=== PATIENT | male | born 1940 | race Caucasian/White ===

== ENCOUNTER 2017-10-06 09:25 | Day surgery (SDC) | payer MEDICARE ==
[~2017-10-06] VITALS: Ht 175.3 cm; Wt 102.0 kg
[~2017-10-06 09:25] MED LIST: ALBU90OI6; ALBU90OI6 INH; ASPI81CH PO; Aspir 8181 MG PO; Belladonna-Opi1 EACH RC; CEPH500 PO; COMBIVENT RESPIM4 GM; DIGO.25 PO; DILT120 PO; DILT180ER PO; DOCU100; FURO20 PO; HYDRA25; INDO75CR PO; LEVFLO500; LISI20 PO; LISINOPRIL PO; METF500C PO; METO50ER; METO50ER PO; MONT10T PO; Norco 5-325 Ta1 EACH PO; OXYC5 PO; POTA20PAC PO; POTCHL10ER; POTCHL20ER PO; TAZTIA PO; TAZTIA XT360 MG; TERA5 PO; Ventolin5 MG/1 ML INH; WARF10 PO; WARF2.5 PO; WARF5
[2017-10-06] MEDS ORDERED: METO100ER PO (10:21)
[2017-10-06] MEDS ORDERED: WARF10 PO (10:24)
[2017-10-06] MEDS ORDERED: VITAMIN D-32000 UNIT PO (10:25)
[2017-10-06] MEDS ORDERED: SERT50 PO (10:26)
[2017-10-06] MEDS ORDERED: ATOR20 PO (10:27)
[2017-10-06] MEDS ORDERED: SPIR25 PO (10:28)
[2017-10-06] MEDS ORDERED: DIGOX125 MCG PO (12:18)
[2018-03-25] MEDS ORDERED: Roxicodone5 MG PO (10:07)
[2018-03-25] MEDS ORDERED: ALLO100 PO (10:07)
[2018-03-25] MEDS ORDERED: Hair, Skin & N1 EACH PO (10:08)
[2018-03-25] MEDS ORDERED: COMBIVENT RESPIM4 GM INH (10:08)
== END 2017-10-06 15:32 | disposition home or self-care (01) ==
LOC: MHTC 09:25
PROC: B2111ZZ Fluoroscopy of Multiple Coronary Arteries using Low Osmolar Contrast (ICD-10-PCS; principal; 2017-10-06)
DX: I25.10 Atherosclerotic heart disease of native coronary artery without angina pectoris (principal); I11.0 Hypertensive heart disease with heart failure; I50.23 Acute on chronic systolic (congestive) heart failure; I48.1 Persistent atrial fibrillation; E78.00 Pure hypercholesterolemia, unspecified; E11.9 Type 2 diabetes mellitus without complications; J44.9 Chronic obstructive pulmonary disease, unspecified; I87.2 Venous insufficiency (chronic) (peripheral); I45.2 Bifascicular block; I35.0 Nonrheumatic aortic (valve) stenosis; I71.4 Abdominal aortic aneurysm, without rupture; F17.220 Nicotine dependence, chewing tobacco, uncomplicated; Z79.01 Long term (current) use of anticoagulants; Z79.899 Other long term (current) drug therapy; Z88.8 Allergy status to other drugs, medicaments and biological substances
CPT/HCPCS: 93454; 99152; 99153; C1769; C1894; J1644; J2250; J3010; J7030; Q9967

== ENCOUNTER 2017-12-17 10:52 | Day surgery (SDC) | payer MEDICARE ==
[~2017-12-17 10:52] MED LIST changes: +ATOR20 PO; +DIGOX125 MCG PO; +METO100ER PO; +SERT50 PO; +SPIR25 PO; +VITAMIN D-32000 UNIT PO
== END 2017-12-17 23:01 | disposition home or self-care (01) ==
LOC: RAD 10:52 → MRI 12:00 → RAD 23:01
PROC: BP3 Imaging, Non-Axial Upper Bones, Magnetic Resonance Imaging (MRI) (ICD-10-PCS; principal; 2017-12-17)
DX: S63.592A Other specified sprain of left wrist, initial encounter (principal); M77.8 Other enthesopathies, not elsewhere classified; M65.9 Synovitis and tenosynovitis, unspecified; M19.032 Primary osteoarthritis, left wrist
CPT/HCPCS: 25246; 70030; 73222; 77002; A9577; Q9967

== ENCOUNTER 2018-03-31 06:08 | Day surgery (SDC) | payer MEDICARE ==
[~2018-03-31] VITALS: Ht 175.3 cm; Wt 92.5 kg
[~2018-03-31 06:08] MED LIST changes: +ALLO100 PO; +COMBIVENT RESPIM4 GM INH; +Hair, Skin & N1 EACH PO; +Roxicodone5 MG PO
== END 2018-03-31 22:50 | disposition home or self-care (01) ==
LOC: ORSCMMR 06:08 → ORD 07:30 → ORSCMMR 07:30 → ORD 08:30 → ORSCMMR 22:50
PROVIDERS: Surgery
PROC: 0JBF0ZZ Excision of Left Upper Arm Subcutaneous Tissue and Fascia, Open Approach (ICD-10-PCS; principal; 2018-03-31 07:30)
DX: D17.1 Benign lipomatous neoplasm of skin and subcutaneous tissue of trunk (principal); I48.91 Unspecified atrial fibrillation; Z87.891 Personal history of nicotine dependence; J45.909 Unspecified asthma, uncomplicated; I10 Essential (primary) hypertension; E11.9 Type 2 diabetes mellitus without complications; E66.9 Obesity, unspecified; Z68.30 Body mass index [BMI] 30.0-30.9, adult; Z79.01 Long term (current) use of anticoagulants; Z79.84 Long term (current) use of oral hypoglycemic drugs; Z79.899 Other long term (current) drug therapy
CPT/HCPCS: 82947; 88304; J0330; J0690; J1100; J2250; J2370; J2405; J3010; J7120